=== PATIENT | male | born 1955 | race Caucasian/White ===

== ENCOUNTER 2022-07-19 11:20 | Emergency (ER) | payer OTHER, MEDICARE ==
[~2022-07-19] VITALS: Ht 180.3 cm; Wt 83.9 kg
[2022-07-19] MEDS ORDERED: OXYC5 PO (13:02)
== END 2022-07-19 13:16 | disposition home or self-care (01) ==
LOC: ER 11:20
DX: S80.12XA Contusion of left lower leg, initial encounter (principal); W01.0XXA Fall on same level from slipping, tripping and stumbling without subsequent striking against object, initial encounter; Z87.891 Personal history of nicotine dependence; Z89.512 Acquired absence of left leg below knee
CPT/HCPCS: 73590; A9270; J1885